=== PATIENT | male | born 1975 | race Caucasian/White ===

== ENCOUNTER → 2017-12-23 21:35 | Emergency (ER) | payer BC ==
--- NOTE | 2017-12-23 22:06 | ED ---
Lower Extremity - HPI Summary HPI Summary: Mr. Malhotra her dress shoes on Thursday and got a blister on the back of his left heel. He has a previous injury to the leg and has as he describes it poor circulation. He has gotten infected before from his foot and required hospitalization. He began to feel unwell today on top of the pain that he's been experiencing in his left heel. He is not nauseated. - History of Current Complaint Chief Complaint: UCLowerExtremity Stated Complaint: SOFT TISSUE Time Seen by Provider: 12/23/17 21:43 Hx Obtained From: Patient Onset of Pain: Hours Onset/Duration: Days Severity Initially: Mild Severity Currently: Moderate Pain Intensity: 6 Timing: Constant Location: Is Discrete @ - left heel Character Of Pain: Aching Associated Signs And Symptoms: Positive: Swelling, Redness Aggravating Factor(s): Standing Alleviating Factor(s): Nothing Able to Bear Weight: Yes - Allergies/Home Medications Allergies/Adverse Reactions: Allergies Allergy/AdvReac Type Severity Reaction Status Date / Time venlafaxine Allergy See Comment Verified 12/23/17 21:41 azithromycin AdvReac Nausea Verified 12/23/17 21:41 levofloxacin [From Levaquin] AdvReac Nausea Verified 12/23/17 21:41 PMH/Surg Hx/FS Hx/Imm Hx Endocrine/Hematology History: Reports: Other Endocrine/Hematological Disorders - Low iron as a baby Respiratory History: Denies: Hx Asthma Musculoskeletal History: Reports: Other Musculoskeletal History - Bitten by brown recluse spider in left leg, multiple surgeries - Surgical History Surgery Procedure, Year, and Place: Left lower extremity surgeries [id number] [phone] , complications from brown recluse bite. 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 Denies: History Other Infectious Disease, Traveled Outside the [place] in Last 30 Days - Social History Alcohol Use: Occasionally Substance Use Type: Reports: None Smoking Status (MU): Never Smoked Tobacco Review of Systems Constitutional: Negative Eyes: Negative Cardiovascular: Negative Respiratory: Negative Gastrointestinal: Negative Genitourinary: Negative Musculoskeletal: Negative Skin: Other - redness and swelling Neurological: Negative Psychological: Normal All Other Systems Reviewed And Are Negative: Yes Physical Exam - Summary Physical Exam Summary: He is non-toxic in appearance and his vitals are WNL. He is afebrile. Triage Information Reviewed: Yes Vital Signs On Initial Exam: Initial Vitals Temp Pulse Resp BP Pulse Ox 100.0 F 96 18 119/64 95 12/23/17 21:46 12/23/17 21:46 12/23/17 21:46 12/23/17 21:46 12/23/17 21:46 Vital Signs Reviewed: Yes Appearance: Positive: Well-Appearing Skin: Positive: Warm, Skin Color Reflects Adequate Perfusion, Dry - left heel is erythematous and warm. He has a one CM ulcer laterally. Neck: Positive: Supple Respiratory/Lung Sounds: Positive: Clear to Auscultation Cardiovascular: Positive: Normal Musculoskeletal: Positive: Normal Neurological: Positive: Normal Psychiatric: Positive: Normal Diagnostics - Vital Signs Vital Signs Temp Pulse Resp BP Pulse Ox 12/23/17 21:46 100.0 F 96 18 119/64 95 - Laboratory Lab Statement: Any lab studies that have been ordered have been reviewed, and results considered in the medical decision making process. Lower Extremity Course/Dx - Course Course Of Treatment: Mr. Malhotra clearly has the beginnings of a cellulitis. He has had problems with that foot before as a sequela of multiple surgeries secondary to a brown recluse bite. He has poor circulation and certainly needs antibiotics. I think he deserves outpatient trial. Labs are drawn and sent for him to follow-up with Dr. Last this week. He is given his first dose of Keflex here in the department and one to go home for the morning. A prescription is sent also. He is doing a lot of sitting in class during the day and is recommended that he elevate his leg as much as possible. He understands this recommendation and the thinking behind it. - Diagnoses Provider Diagnoses: Cellulitis Discharge - Sign-Out/Discharge Documenting (check all that apply): Patient Departure All imaging exams completed and their final reports reviewed: Yes - Discharge Plan Condition: Stable Disposition: HOME Prescriptions: Cephalexin CAP* [Keflex CAP*] 500 mg PO QID #30 cap Patient Education Materials: Cellulitis (ED) Referrals: Rodney Last MD [Primary Care Provider] - Additional Instructions: Follow up for a recheck in the next 1-2 days. - Billing Disposition and Condition Condition: STABLE Disposition: Home
[2017-12-23] MEDS: Cephalexin CAP* 500 MG PO ONE ×2 (22:19)
[2017-12-23 22:33] VITALS: BP 137/79
[2017-12-23] MEDS: Acetaminophen TAB* 325 MG PO ONE (22:45)
== END | disposition home or self-care (01) ==
LOC: UCEAST 21:35
DX: L03.116 Cellulitis of left lower limb (principal); Z88.1 Allergy status to other antibiotic agents; Z88.8 Allergy status to other drugs, medicaments and biological substances
CPT/HCPCS: 99203; A9270-GY; G0463